=== PATIENT | female | born 1960 | race Caucasian/White ===

== ENCOUNTER → 2016-11-01 | Outpatient (CLI) | payer OTHER | LOC: BRMIMAGING 16:55 | PROVIDERS: ATTEND Internal Medicine | DX: M25.511 Pain in right shoulder (principal); M25.512 Pain in left shoulder | CPT/HCPCS: 73030-PO; 73050-PO ==

== ENCOUNTER → 2016-11-25 | Outpatient (CLI) | payer OTHER | LOC: BRMIMAGING 16:45 | PROVIDERS: ATTEND Internal Medicine | DX: M50.322 Other cervical disc degeneration at C5-C6 level (principal); S13.160A Subluxation of C5/C6 cervical vertebrae, initial encounter | CPT/HCPCS: 72052-PO ==